=== PATIENT | female | born 1945 | race Caucasian/White ===

== ENCOUNTER 2025-05-29 13:34 | Emergency (ER) | payer MEDICARE, OTHER, SELFPAY ==
[2025-05-29 13:42] VITALS: BP 192/100
[2025-05-29 14:14] LABS: Hematocrit 40.1 % (37.0-47.0); Hemoglobin 13.5 g/dL (12.0-16.0); Mean Corp Hgb Conc. 33.7 g/dL (33.0-37.0); Mean Corpuscular Volume 96.2 fL (81.0-99.0); Nucleated Red Blood Cells % 0 %; Platelet Count 240 10^3/uL (130-400); Red Cell Dist. Width 12.8 % (11.5-14.5)
[2025-05-29 14:23] LABS: INR 1.09; PT 14.6 Sec (11.4-14.6)
[2025-05-29 14:26] LABS: ALT (SGPT) 32 U/L (0-35); AST (SGOT) 32 U/L (14-36); Albumin 4.7 g/dl (3.5-5.0); Alkaline Phosphatase 129 U/L (38-126); Blood Urea Nitrogen 17 mg/dl (7-17); Calcium 9.4 mg/dl (8.4-10.2); Carbon Dioxide 25 mmol/L (22-30); Chloride 104 mmol/L (98-107); Glucose 119 mg/dl (70-99); Potassium 4.2 mmol/L (3.5-5.1); Sodium 136 mmol/L (135-145); Total Protein 7.6 g/dl (6.3-8.2); eGFR > 60.00
[2025-05-29 14:37] LABS: Troponin I < 0.012 ng/ml
[2025-05-29 17:03] VITALS: BP 193/99
--- NOTE | 2025-05-29 17:20 | ED.GENMED ---
History of Present Illness
General
Chief Complaint: Cardiac Symptoms
Source: patient and family (daughter)
Exam Limitations: none
Time Seen by Provider: 05/29/25 16:56
Nursing documentation reviewed up to this point in time: agreed with
History of Present Illness
History of Present Illness:
Patient to ED with complaint of dizziness, nausea, an episode of vomiting this AM. Symptoms lasted 'a few hours'. She was evaluated by nurse at facility and advised to go to . SHe was seen at , EKG, labs completed, and then she was told to
come to ED. SHe is now symptom free. No prior history of same. PMH chronic afib. On eliquis and cardizem, compliant with her meds however skipped AM doses due to dizziness.
Past History
Past History
ED Past Medical History: Arrthythmia (chronic afib), HTN and Hypothyroidism
ED Past Surgical History: Appendectomy, Orthopedic and Other (thyroidectomy)
Review of Systems
Review of Systems
Allergies reviewed?: Yes
All Other Systems: ROS reviewed and negative except as documented in HPI and ROS
Constitutional: Reports no symptoms
EENT: Reports no symptoms
Respiratory: Reports no symptoms
Cardiac: Reports diaphoresis (Associated with dizziness this AM)
ABD/GI: Reports nausea and vomiting (1 episode of vomiting this AM)
: Reports no symptoms
Musculoskeletal: Reports no symptoms
Skin: Reports no symptoms
Neurological: Reports dizzy (Dizziness)
Endocrine: Reports no symptoms
Psychiatric: Reports no symptoms
Phy Exam
General Physical Exam
General Presentation: well appearing and no apparent distress
General age: appears stated age
General Skin: warm and dry
General Habitus: normal
General Mental: alert
Cardiovascular Exam
Cardiovascular Exam: irregularly irregular
Pulmonary Exam
Pulmonary Exam: lungs clear and no respiratory distress
Gastrointestinal Exam
Gastrointestinal Exam: non tender and soft
Neurological Exam
Neurological Exam: alert, oriented x3, CN II-XII intact, no motor deficits, no sensory deficits and speech normal
Musculoskeletal Exam
Musculoskeletal Exam: full ROM and neuro vasc intact
Skin Exam
Skin Exam: normal color, warm/dry and no rash
Psychiatric Exam
Psychiatric Exam: normal mood/affect
Course
Orders/Labs/Results
Orders:
Orders
05/29/25 13:36
Electrocardiogram (*1) Urgent
Reason for Study: Chest Pain
EKG- Treatment ONCE
05/29/25 14:06
Comprehensive Metabolic Panel Urgent
Prothrombin Time Urgent
TSH Reflex To Free T4 Urgent
05/29/25 14:07
Complete Blood Count/With Diff Urgent
Troponin I Urgent
05/29/25 17:40
Metoprolol [Lopressor] 50 mg PO NOW STA
Abnormal Lab Results
05/29/25 05/29/25
14:06 14:07
RBC 4.17 L 10^6/uL
(4.20-5.40)
MCH 32.4 H pg
(27.0-31.0)
Abs Immat Gran (auto) 0.1 H 10^3/uL
(0-0.05)
Absolute Neuts (auto) 8.5 H 10^3/uL
(1.4-6.5)
Absolute Lymphs (auto) 0.9 L 10^3/uL
(1.2-3.4)
Immature Gran % 0.6 H %
(0-0.5)
Neutrophils % 87.4 H %
(42.2-75.2)
Lymphocytes % 9.1 L %
(20.5-51.1)
Glucose 119 H mg/dl
(70-99)
Alkaline Phosphatase 129 H U/L
(38-126)
05/29/25 14:07
05/29/25 14:06
Vital Signs
Initial and Last Documented VS:
Initial Vital Signs
Temp Pulse Resp BP Pulse Ox
97.8 F 98 20 192/100 99
05/29/25 13:42 05/29/25 13:42 05/29/25 13:42 05/29/25 13:42 05/29/25 13:42
Last Documented Vital Signs
Temp Pulse Resp BP Pulse Ox
97.8 F 100 22 193/99 99
05/29/25 13:42 05/29/25 17:15 05/29/25 17:15 05/29/25 17:03 05/29/25 17:23
*Pulse Oximetry
SaO2: 99
Oxygen Mode of Delivery: Room air
Patient hypoxic: no
*Critical Care Note
Total Time (30-74mins, 75-104mins- exclusive of procedures): Not Applicable
Update Note
Update Note:
Patient to ED with cmplaint of dizziness, nausea, diaphoresis this AM. Symptoms states 'a few hours' and then resolved without intervention. Has had vertigo in past. She remains symptom free. Labs, EKG reviewed. Afib noted, controlled rate
BP elevated in ED. SHe has not taken her medications today. Will give metoprolol 50mg now. SHe will resume her typical meds at bedime. Consisder TIA vs vertigo. Case discussed wt Dr. Chacon. Will hold off on head CT. She remains symptom free,
on eliquis. 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 Given instructions on s/s toreturn to ED and she is agreeable to plan.
ED Attending Note
-
Portions of this chart may have been created with voice recognition software.� Occasional wrong word or��sound alike� substitutions may have occurred due to the inherent limitations of voice recognition software.
Discharge Plan
Departure
Patient Disposition: Home (Routine Discharge)
Date of Disposition: 05/29/25
Time of Disposition: 17:41
Patient with high blood pressure during this ER visit?: No
Condition: Good
Covid-19: Not Applicable
Discharge Problem:
Dizziness
Instructions: Dizziness, BLOOD PRESSURE
Referrals:
Jessica Baltazar CRNP [Family Provider, Family Practice] - Tomorrow
Activity Restrictions/Additional Instructions:
Take all of your normal medications at bedtime as usual. Return to the emergency department immediately for return of your symptoms.
Interventions
Interventions:
*Risk Screen - Suicide Last Done: 05/29/25 17:25
*General Assessment Last Done: 05/29/25 17:24
*Neglect/Abuse Screening Last Done: 05/29/25 17:24
*ED- Fall Risk Assessment Last Done: 05/29/25 17:24
*ED COVID-19 Vaccine History Last Done: 05/29/25 17:24
Discharge Date and Time
Print Language: BELARUSIAN
[2025-05-29 17:29] VITALS: BP 169/96
[2025-05-29 17:50] VITALS: BP 181/104
[2025-05-29] MEDS: LOPRESSOR 50 MG PO (17:50)
== END 2025-05-29 18:08 | disposition home or self-care (01) ==
LOC: EMR 13:34
PROVIDERS: Emergency Medicine; EMERGENCY PHYSICIAN Student in an Organized Health Care Education/Training Program; FAMILY PHYSICIAN Registered Nurse
DX: R42 Dizziness and giddiness (principal); R11.2 Nausea with vomiting, unspecified; R61 Generalized hyperhidrosis; I48.20 Chronic atrial fibrillation, unspecified; I10 Essential (primary) hypertension; E03.9 Hypothyroidism, unspecified; Z79.899 Other long term (current) drug therapy; Z79.01 Long term (current) use of anticoagulants; Z87.891 Personal history of nicotine dependence; Z88.5 Allergy status to narcotic agent
CPT/HCPCS: 99284; 80053; 84443; 84484; 85025; 85610; 93005